=== PATIENT | male | born 1990 | race Hispanic/Latino ===

== ENCOUNTER 2017-12-25 20:19 | Emergency (ER) | payer OTHER ==
[2017-12-25 20:40] VITALS: RESP 18; O2SAT 100
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
[2017-12-25] MEDS ORDERED: Tdap Vaccine 0.5 ml Vial (10-64 yrs) IM ONE ×2 (22:43→22:55)
[2017-12-25 23:02] VITALS: BP 120/69; PULSE 82; TEMP 98.7
== END 2017-12-25 22:55 | disposition home or self-care (01) ==
LOC: H.ER 20:19
DX: S01.81XA Laceration without foreign body of other part of head, initial encounter (principal); W22.8XXA Striking against or struck by other objects, initial encounter; Y92.89 Other specified places as the place of occurrence of the external cause